=== PATIENT | male | born 1975 | race Caucasian/White ===

== ENCOUNTER 2023-09-17 19:42 | Emergency (ER) | payer BC, OTHER ==
[2023-09-17 19:52] VITALS: TEMP 98.1; BMI 28.4
[2023-09-17] MEDS ORDERED: SODIUM CHLORIDE 0.9% 500 ML INFUS.BAG IV ONE (21:31)
[2023-09-17] MEDS ORDERED: ACETAMINOPHEN 1000 MG/100 ML BAG IVPB ONE (21:31)
[2023-09-17] MEDS ORDERED: ASPIRIN 325 MG TABLET PO ONE (21:34)
[2023-09-17] MEDS ORDERED: LIDOCAINE 5% TOPICAL PATCH TP ONE (21:34)
[2023-09-17] MEDS ORDERED: ASPIRIN 325 MG TABLET ONE (21:50)
[2023-09-17] MEDS ORDERED: LIDOCAINE 4% PATCH TP ONE ×2 (21:50)
[2023-09-17] MEDS ORDERED: LIDOCAINE PATCH REMOVAL MC SCH (22:00)
[2023-09-17] MEDS ORDERED: ACETAMINOPHEN INJECTION 100 ML IVPB ONE (22:06)
[2023-09-17 22:19] LABS: MCH 30.5 pg (25.7-33.7); MEAN CELL VOLUME 89.5 fl (80-96); MEAN PLT VOLUME 9.1 fl (7.5-11.1); PLATELET COUNT 225 10^3/uL (134-434); RBC 4.58 M/mm3 (4.00-5.60); RDW 13.1 % (11.9-15.9)
[2023-09-17 22:48] LABS: INR 1.04 (0.83-1.09); PROTHROMBIN TIME (PATIENT) 12.1 SEC (9.7-13.0)
[2023-09-17 23:05] LABS: POTASSIUM 4.2 mmol/L (3.5-5.1)
[2023-09-17 23:07] LABS: ALBUMIN 3.8 g/dl (3.4-5.0); BLOOD UREA NITROGEN 15.4 mg/dL (7-18); CALCIUM 8.6 mg/dL (8.5-10.1)
[2023-09-17 23:10] LABS: CREATININE 1.1 mg/dL (0.55-1.3)
[2023-09-17 23:12] LABS: BILIRUBIN,TOTAL 0.4 mg/dL (0.2-1); TOT PROT 6.8 g/dl (6.4-8.2)
[2023-09-18 00:26] VITALS: BP 111/69; PULSE 61; RESP 16
[2023-09-18] MEDS ORDERED: LIDOCAINE PATCH REMOVAL MC SCH (10:00)
== END 2023-09-18 00:35 | disposition home or self-care (01) ==
LOC: JER 19:42
PROC: 3E033NZ Introduction of Analgesics, Hypnotics, Sedatives into Peripheral Vein, Percutaneous Approach (ICD-10-PCS; principal; 2023-09-17)
DX: R07.9 Chest pain, unspecified (principal); R20.0 Anesthesia of skin; R20.2 Paresthesia of skin; R68.83 Chills (without fever); R25.1 Tremor, unspecified; R06.9 Unspecified abnormalities of breathing; Z20.822 Contact with and (suspected) exposure to COVID-19
CPT/HCPCS: 0241U-QW; 36415; 71046-TC-FY; 80053; 83735; 84484; 85027; 85610; 93005; 93010; 99285-25